=== PATIENT | female | born 1930 | race Caucasian/White ===

== ENCOUNTER 2016-10-28 13:41 | Inpatient (IN) ==
[2016-10-28] MEDS ORDERED: cefTRIAXone 1,000 MG in SODIUM CHLORIDE 0.9% 100 ML IV STA (14:38)
[2016-10-28] MEDS ORDERED: SODIUM CHLORIDE 0.9% 1,000 ML IV STA (14:38)
--- NOTE | 2016-10-28 15:04 | Emergency Department Note ---
Radha Key Hilary, am scribing for, and in the presence of, Dwayne Miner MD 14:44. Isidra Key Charles R, MD, personally performed the services described in this documentation, ascribed by Estee Garcia in my presence, and it is both accurate and complete [id number] . Arrival - Arrival Chief Complaint: Fever Stated Complaint: fever ED Nursing Triage Note: Brought in by EMS-sent from [facility] for further evaluation of fever and UTI. Patient was dx with UTI on 10/25/16, but was not started on antibiotics. Unsure of when patient started running fever, reports temp up to 104. Mode of Arrival: Stretcher Limitations: No Limitations Source: Patient, RN Notes Reviewed Time Seen by Provider: 10/28/16 14:35 - History of Present Illness HPI Narrative: Pt is a 86 y/o female brought into the ED via EMS from [facility] for further evaluation of a fever and UTI. Pt was diagnosed with a UTI on 10/25/16, but was not started on antibiotics. [facility] reports her temperature was at 104. Pt speaks very quietly almost inaudible but states she feels "crazy". Onset (ago): day(s) Date of Last Menstrual Period: hysterectomy Allergies/Adverse Reactions: Allergies Allergy/AdvReac Type Severity Reaction Status Date / Time No Known Allergies Allergy Verified 06/26/16 01:23 Home Medications: Home Medications Medication Instructions Recorded Confirmed Type Calcium (Carb)/Vit D 600-400 1 tablet PO TID 03/01/16 10/28/16 History [Caltrate 600 + D] Carbidopa/Levodopa 25-100 [Sinemet 1 tablet PO TID 03/01/16 10/28/16 History 25-100] Diclofenac 1% Gel [Voltaren 1% Gel] 1 applic TOP BID 03/01/16 10/28/16 History Escitalopram [Lexapro] 20 mg PO DAILY 03/01/16 10/28/16 History Ferrous Sulfate Liquid [Feosol 5 ml PO BID 03/01/16 10/28/16 History Liquid] Furosemide Tab [Lasix Tab] 20 mg PO DAILY 03/01/16 10/28/16 History HYDROcodone/ACETAMIN 7.5-325 1 tablet PO Q4H PRN 03/01/16 10/28/16 History [[place] 7.5-325] LORazepam [Ativan] 0.5 mg PO Q6H PRN 03/01/16 10/28/16 History Magnesium Hydroxide Susp [Milk of 30 ml PO DAILY PRN 03/01/16 10/28/16 History Magnesia] Memantine [Namenda] 10 mg PO BID 03/01/16 10/28/16 History Mirtazapine [Remeron] 15 mg PO SUMOTUWETHFR 03/01/16 10/28/16 History Polyethylene Glycol Powder 17 gm PO BID 03/01/16 10/28/16 History [Miralax] Potassium Chloride Liquid 15 ml PO TID 03/01/16 10/28/16 History Raloxifene [Evista] 60 mg PO DAILY 03/01/16 10/28/16 History Ropinirole HCl [Requip] 2 mg PO TID 03/01/16 10/28/16 History Acetaminophen Tab [Tylenol Tab] 1,000 mg PO Q6H PRN 04/22/16 10/28/16 History Gabapentin [Gabapentin] 300 mg PO BEDTIME 04/22/16 10/28/16 History Ondansetron Tab [Zofran Tab] 4 mg PO Q4H PRN 04/22/16 10/28/16 History guaiFENesin LIQUID [Robitussin] 10 ml PO Q4H PRN 04/22/16 10/28/16 History Albuterol/Ipratropium Neb [Duoneb] 3 ml RESP TX RT Q6H PRN 10/28/16 10/28/16 History Gabapentin 200 mg PO DAILY 10/28/16 10/28/16 History Omeprazole [Prilosec] 20 mg PO DAILY 10/28/16 10/28/16 History Review of System - Review of System 12 point system: reviewed and no additional remarkable complaints except as stated - Review of System Constitutional: Present: fever Psychiatric: Present: other (feels crazt). Absent: auditory hallucinations, visual hallucinations Medical,Surgical,& Family Hx - Medical History Cardio: History of: CHF, CAD, Hypertension Comment Only: Cardiovascular Problems (Cardiomegaly) Neurology: History of: Dementia, Parkinson's Disease No history of: Seizures Genitourinary: History of: Bladder Problem (incont.), Recurring Urinary Tract Infections Gastrointestinal: History of: GERD, GI Problems (HIATAL HERNIA) Musculoskeletal: History of: Back/Neck Problems (BACK SURGERY), Musculoskeletal Problems Hematology: History of: Anemia (IN PAST) - Surgical History HEENT Surgeries: Surgical HX of: Eye Surgery (bilateral cataract excisions) Abdominal Surgeries: Surgical HX of: Cholecystectomy Reproductive Surgeries: Surgical HX of;: Hysterectomy Orthopedic Surgeries: Surgical HX of;: Total Knee Replacement (bilateral) - Family History Family History: Reports;: Family Heart Disease (mother) Denies;: Family Anesthesia Reaction, Family Cancer, Family Diabetes, Family Hypertension, Family Psychiatric Problems, Family Stroke - Social History Smoking Status: Never smoker Frequency of Alcohol Use: None Type of Drug Use: None Exam Vital Signs: Vital Signs Temperature 98.9 F 10/28/16 13:47 Pulse Rate 106 H 10/28/16 13:47 Respiratory Rate 20 10/28/16 13:47 Blood Pressure 89/47 10/28/16 13:47 O2 Sat by Pulse Oximetry 100 10/28/16 13:47 - General General appearance: alert, in no apparent distress - Head Head exam: Present: atraumatic, normocephalic - Eye Eye exam: Present: normal appearance, PERRL, EOMI - ENT ENT exam: Present: mucous membranes dry, TM's normal bilaterally - Neck Neck exam: Present: full ROM, trachea midline. Absent: tenderness - Chest Chest inspection: Present: symmetric chest wall rise. Absent: tenderness - Respiratory Respiratory exam: Present: normal lung sounds bilaterally. Absent: respiratory distress - Cardiovascular Cardiovascular exam: Present: regular rate, normal rhythm, normal heart sounds - Abdominal Exam Abdominal exam: Present: soft, tenderness (Tenderness around peg tube. Doesn't eat through her mouth but does drink water. ). Absent: distention - Extremities Exam Extremities exam: Present: full ROM, tenderness (lower extremities), pedal edema (+3 pitting edema) - Back Exam Back exam: Present: full ROM. Absent: tenderness - Neurological Exam Neurological exam: Present: alert, oriented X3, CN II-XII intact. Absent: motor sensory deficit - Psychiatric Psychiatric exam: Present: normal affect, normal mood - Skin Skin exam: Present: warm, dry, intact, normal color. Absent: rash Course - Consultations Consultation #1: Hospitalist will admit patient Time: 17:13 Results - Labs CBC & BMP: 10/28/16 15:13 10/28/16 15:13 Lab Results: I have reviewed the patients labs Labs: Laboratory Tests 10/28/16 10/28/16 15:13 15:13 WBC 19.2 H Hgb 11.8 L MCHC 31.9 L Neut % (Auto) 85.0 H Lymph % (Auto) 5.4 L Neut # (Auto) 16.3 H Lymph # (Auto) 1.0 L Oliver # (Auto) 1.7 H Chloride 108 H BUN 21 H BUN/Creatinine Ratio 23.00 H Calcium 8.3 L Total Protein 6.2 L Albumin 2.5 L Globulin 3.7 H Albumin/Globulin Ratio 0.6 L Amylase 23 L Lipase 59.0 L - Diagnostic Findings Procedure: Chest x-ray: report reviewed by me (There are minimal biasilar opacities, mainly on the left. This likely represents atelectasis and possibly scarring. However, pneumonia is not excluded at the left lung base) Critical Care Time Critical Care Time: Yes Total Critical Care Time: 60 Disposition Clinical Impression: Sepsis, intermediate-acquired pneumonia, UTI (urinary tract infection), Fever, Confusion, Altered mental status, Hypotension, Leukocytosis Case discussed with: patient, patient's family Disposition: Still a Patient Condition: Stable Time of Disposition: 17:13
--- NOTE | 2016-10-28 15:15 | XRay Report ---
Referring Physician: Dwayne Miner Exam: XR chest 1V portable Date: October 28, 2016 at 2:50 PM Reason: Shortness of breath, fever Comparison: Chest one view portable June 26, 2016 Findings: The cardiac silhouette is upper normal in size, and there is scattered calcified plaque at the thoracic aorta. There are also calcified granulomas within the right lung. Minimal bibasilar opacities are present and likely represent atelectasis and possibly scarring. No pneumothorax is identified. The osseous structures appear stable. A sclerotic density is again seen within the left humeral head. It is nonspecific but may represent an enchondroma or bone infarction. Impression: There are minimal bibasilar opacities, mainly on the left. This likely represents atelectasis and possibly scarring. However, pneumonia is not excluded at the left lung base. PROCEDURE INTERPRETED AT [facility] DEPARTMENT OF RADIOLOGY Final Report Signed by: Dr. Erica Ruiz
[2016-10-28 16:10] LABS: Basophils # 0.1 10*3/uL (0.0-0.2); Basophils % 0.3 % (0.0-0.8); Hemoglobin 11.8 GM/DL (12.0-16.0); Immature Granulocytes % 0.7 %; Immature Granulocytes Absolute 0.13 #; Lymphocytes % 5.4 % (21.3-54.2); Mean Corpuscular HGB Conc 31.9 GM/DL (32-36); Mean Corpuscular Hemoglobin 30 PG (27-34); Mean Corpuscular Volume 93.4 FL (87-102); Mean Platelet Volume 11.7 FL (9.6-12.0); Monocytes # 1.7 10*3/uL (0.11-0.8); Monocytes % 8.6 % (1.7-12.7); Neutrophils # 16.3 10*3/uL (1.4-7.4); Platelet Count 205 T/CUMM (130-400); Red Blood Count 3.96 MC/CUMM (3.8-5.5); Red Cell Distribution Width 14.5 % (9.3-17.3); White Blood Count 19.2 T/CUMM (4-12)
[2016-10-28 16:18] LABS: INR 1.1; PT Patient Result 11.2 SECS
[2016-10-28] MEDS ORDERED: cefTRIAXone 1,000 MG VIAL ONE (16:30)
[2016-10-28 16:51] LABS: Albumin 2.5 G/DL (3.4-5.0); Bilirubin,Total 0.7 MG/DL (0.2-1.0); Calcium 8.3 MG/DL (8.5-10.1); Osmolality,Calculated 288.8 MOS/KG (273-304); Potassium 3.8 MMOL/L (3.5-5.1); Total Protein 6.2 G/DL (6.4-8.3)
[2016-10-28 17:01] LABS: Apearance,Urine CLOUDY (Clear); Bacteria,Urine Moderate /HPF (Few); Bilirubin,Urine Negative (Negative); Blood, Urine Small mg/dL (Negative); Glucose,Urine (UA) Negative (Negative); Ketones,Urine 5 mg/dL (Negative); Mucus,Urine Many /LPF (Occasional); Nitrite,Urine Negative (Negative); Protein,Urine 100 MG/DL; RBC,Urine 48 /HPF (0-4); Squamous Epithelial Cell,Urine Occasional /HPF (0-10); Urine Color Yellow (Yellow); Urine Specific Gravity 1.009 (1.001-1.035); Urine Urobilinogen < 2.0 EU/DL (0.2-1.0); WBC,Urine 67 /HPF (0-6)
[2016-10-28] MEDS ORDERED: LEVOFLOXACIN INJ 750 MG in PREMIX 1 EACH IV STA (17:16)
[2016-10-28] MEDS ORDERED: ALBUTEROL 2.5 MG/3 ML NEB RESP TX PRN (17:40)
[2016-10-28] MEDS ORDERED: SODIUM CHLORIDE 0.9% 500 ML IV ONE (17:40)
[2016-10-28] MEDS ORDERED: ACETAMINOPHEN 325 MG TABLET PO PRN (17:40)
[2016-10-28] MEDS ORDERED: ONDANSETRON 4 MG/2 ML VIAL IV PRN (17:40)
[2016-10-28] MEDS ORDERED: ZALEPLON 5 MG CAPSULE PO PRN (17:59)
[2016-10-28] MEDS ORDERED: LACTULOSE 20 GM/30 ML UDCUP PO PRN (17:59)
[2016-10-28] MEDS ORDERED: SODIUM CHLORIDE 0.9% 1,000 ML IV SCH (18:00)
--- NOTE | 2016-10-28 18:05 | Hospitalist History & Physical ---
<Chelita Silva - Last Filed: 10/28/16 18:02> Assessment and Plan (1) Septic shock Status: Acute Assessment and plan: Admit patient to ICU for close monitoring. Initiate sepsis protocol. IV fluids. IV antibiotics ordered (Zosyn). Labs ordered (Lactic acid, blood culture, urine culture, CMP, CBC). CXR ordered - results revealed bibasilar opacities (mainly on the left). Current Visit: Yes (2) Hypotension Status: Acute Assessment and plan: Cardiac monitoring. PRN Levophed ordered. Frequent vital signs. Bed rest. IV fluids ordered. Current Visit: Yes (3) Leukocytosis Status: Acute Assessment and plan: Leukocytosis likely multifactorial. Secondary to urinary tract infection ( providencia stuartii) and pneumonia. Pt. being treated with IV antibiotic (Zoysn ). Blood cultures pending. Current Visit: Yes (4) UTI (urinary tract infection) Status: Acute Assessment and plan: Pt. had urine culture completed on 10/25. Results indicate providencia stuartii which is sensitive to antibiotic Zosyn. Repeat urine culture pending. Das cath in place. Current Visit: Yes (5) Anemia Status: Acute Assessment and plan: Pt. h&h 11.8/37. Pt. on PPI. Repeat CBC in am. Monitor patient. Current Visit: No (6) Aspiration pneumonia Status: Acute Assessment and plan: CXR showed bibasilar opacites (mainly on left). Zosyn ordered for treatment. Speech eval ordererd. Consult engraver tender to restart tube feedings. Current Visit: No (7) Dehydration Status: Acute Assessment and plan: Gentle hydration. Check electrolyte status. Current Visit: No (8) Edema Status: Acute Assessment and plan: Bilateral lower extremity edema (right greater than left). Venous doppler scan ordered. BNP ordered. Echo ordered. Current Visit: Yes History of Present Illness Chief complaint: fever History of present illness: Ms. Parekh is a 86 year old white female patient with a history of hypertension, recurrent UTIs, dementia, and frequent falls that presents to the ED via EMS from [facility] for evaluation of fever, UTI, and WBC of 19.2. The patient's O2 saturation was very low on admission and supplemental O2 was used. The patient was recently diagnosed with a UTI and the urine culture on indicated a growth of providenci stuartii. The patient had not yet been treatment. Today at the nursing facility the staff reported a temp of 104 and a "very low blood pressure". On arrival to ED, pt was hypotensive. She received 1/ 2 Liter of fluid in the ED. Pt's family is at bedside and provides information about patient's code status (DNR) and current condition. Pt. is a poor historian and suffers from dementia. Pt. also has a peg tube in place that is used for supplemental feeding; pt has still been eating at the facility. Home Medications Medication Instructions Recorded Confirmed Type Calcium (Carb)/Vit D 600-400 1 tablet PO TID 03/01/16 10/28/16 History [Caltrate 600 + D] Carbidopa/Levodopa 25-100 [Sinemet 1 tablet PO TID 03/01/16 10/28/16 History 25-100] Diclofenac 1% Gel [Voltaren 1% Gel] 1 applic TOP BID 03/01/16 10/28/16 History Escitalopram [Lexapro] 20 mg PO DAILY 03/01/16 10/28/16 History Ferrous Sulfate Liquid [Feosol 5 ml PO BID 03/01/16 10/28/16 History Liquid] Furosemide Tab [Lasix Tab] 20 mg PO DAILY 03/01/16 10/28/16 History HYDROcodone/ACETAMIN 7.5-325 1 tablet PO Q4H PRN 03/01/16 10/28/16 History [[place] 7.5-325] LORazepam [Ativan] 0.5 mg PO Q6H PRN 03/01/16 10/28/16 History Magnesium Hydroxide Susp [Milk of 30 ml PO DAILY PRN 03/01/16 10/28/16 History Magnesia] Memantine [Namenda] 10 mg PO BID 03/01/16 10/28/16 History Mirtazapine [Remeron] 15 mg PO SUMOTUWETHFR 03/01/16 10/28/16 History Polyethylene Glycol Powder 17 gm PO BID 03/01/16 10/28/16 History [Miralax] Potassium Chloride Liquid 15 ml PO TID 03/01/16 10/28/16 History Raloxifene [Evista] 60 mg PO DAILY 03/01/16 10/28/16 History Ropinirole HCl [Requip] 2 mg PO TID 03/01/16 10/28/16 History Acetaminophen Tab [Tylenol Tab] 1,000 mg PO Q6H PRN 04/22/16 10/28/16 History Gabapentin [Gabapentin] 300 mg PO BEDTIME 04/22/16 10/28/16 History Ondansetron Tab [Zofran Tab] 4 mg PO Q4H PRN 04/22/16 10/28/16 History guaiFENesin LIQUID [Robitussin] 10 ml PO Q4H PRN 04/22/16 10/28/16 History Albuterol/Ipratropium Neb [Duoneb] 3 ml RESP TX RT Q6H PRN 10/28/16 10/28/16 History Gabapentin 200 mg PO DAILY 10/28/16 10/28/16 History Omeprazole [Prilosec] 20 mg PO DAILY 10/28/16 10/28/16 History Allergies Allergy/AdvReac Type Severity Reaction Status Date / Time No Known Allergies Allergy Verified 06/26/16 01:23 Medical,Surgical,& Family Hx - Medical History Cardio: History of: CHF, CAD, Hypertension Comment Only: Cardiovascular Problems (Cardiomegaly) Neurology: History of: Dementia, Parkinson's Disease No history of: Seizures Genitourinary: History of: Bladder Problem (incont.), Recurring Urinary Tract Infections Gastrointestinal: History of: GERD, GI Problems (HIATAL HERNIA) Musculoskeletal: History of: Back/Neck Problems (BACK SURGERY), Musculoskeletal Problems Hematology: History of: Anemia (IN PAST) - Surgical History HEENT Surgeries: Surgical HX of: Eye Surgery (bilateral cataract excisions) Abdominal Surgeries: Surgical HX of: Cholecystectomy Reproductive Surgeries: Surgical HX of;: Hysterectomy Orthopedic Surgeries: Surgical HX of;: Total Knee Replacement (bilateral) - Family History Family History: Reports;: Family Heart Disease (mother) Denies;: Family Anesthesia Reaction, Family Cancer, Family Diabetes, Family Hypertension, Family Psychiatric Problems, Family Stroke - Social History Smoking Status: Never smoker Frequency of Alcohol Use: None Type of Drug Use: None Marital Status: Single Lives With:: senior living Functional capacity: bed bound ROS unobtainable: other (provided by family) - Constitutional Constitutional: Present: fever(s), frequent falls, weakness - EENT Eyes: Present: loss of vision, requires corrective lense Ears: Present: decreased hearing. Absent: ear discharge Nose, mouth and throat: Absent: headache(s) - Cardiovascular Cardiovascular: Present: edema. Absent: chest pain at rest, dyspnea - Respiratory Respiratory: Absent: cough, dyspnea - Gastrointestinal Gastrointestinal: Present: constipation. Absent: nausea, vomiting - Genitourinary Genitourinary: Present: dysuria, hematuria, urinary incontinence - Neurological Neurological: Present: confusion, frequent falls. Absent: headache(s) - Psychiatric Psychiatric: Present: confusion, depression - Endocrine Endocrine: Present: fatigue, heat intolerance - Hematologic/Lymphatic Hematologic/Lymphatic: Absent: easy bleeding, easy bruising Exam - Constitutional Vitals: Period Temp Pulse Resp BP Sys/Morgan Pulse Ox Last 24 Hr 98.9 F-98.9 F 106-106 20-20 89-89/47-47 100 General appearance: normal weight, mild distress - Head Head exam: Present: normal inspection, normocephalic - Eye Eye exam: Present: EOMI. Absent: scleral icterus Pupils: Present: COSME. Absent: dilated - ENT ENT exam: Present: normal exam - Neck Neck exam: Present: normal inspection. Absent: thyromegaly - Respiratory Respiratory exam: Present: decreased breath sounds, other. Absent: rhonchi, wheezes - Cardiovascular Cardiovascular exam: Present: tachycardia. Absent: systolic murmur - GI/Abdominal GI/Abdominal exam: Present: normal bowel sounds, soft, other (pt had peg tube ) . Absent: tenderness - Extremities Exam Extremities exam: Present: normal capillary refill, edema (greater on right lower extremity vs left). Absent: full ROM - Neurological Exam Neurological exam: Present: altered, motor sensory deficit (unable to cooperate with full neurological exam), reflexes normal - Psychiatric Psychiatric exam: Present: normal affect, normal mood - Skin Skin exam: Present: normal color, dry. Absent: erythema Results - Labs CBC & BMP: 10/28/16 15:13 10/28/16 15:13 Lab Results: I have reviewed the past 24 hour labs Labs: Urine culture from outside facility from 10/25 indicate growth of providencia stuartii. - Diagnostic Findings Procedure: Chest x-ray: report reviewed by me (bibasilar opacities (mainly on the left)) <Lolis Esparza - Last Filed: 10/28/16 19:32> History of Present Illness History of present illness: Ms. Parekh is a 86 year old female seen and examined. History and physical already reviewed and edited. Exam - Constitutional Vitals: Period Temp Pulse Resp BP Sys/Morgan Pulse Ox Last 24 Hr 98.9 F-98.9 F 106-106 20-20 89-89/47-47 100 Results - Labs CBC & BMP: 10/28/16 15:13 10/28/16 15:13
--- NOTE | 2016-10-28 18:46 | Ultrasound Report ---
History: Lower extremity swelling. Fever Date: 10/28/2016 Study: Bilateral lower extremity color flow venous Doppler study Comparison exam: Venous ultrasound April 26, 2016 Color Doppler, wave form analysis, and compression analysis of the deep veins of both lower extremities from the common femoral vein level through the popliteal vein level shows that the veins are readily compressible. There is no abnormal intraluminal material to suggest thrombus. Waveform analysis is unremarkable. Ultrasound images were captured and archived Impression: No evidence of acute DVT PROCEDURE INTERPRETED AT [facility] DEPARTMENT OF RADIOLOGY Final Report Signed by: Dr. Rosalie Suazo
[2016-10-28] MEDS ORDERED: NOREPINEPHRINE 8 MG in SODIUM CHLORIDE 0.9% 242 ML IV SCH (20:00)
[2016-10-28] MEDS ORDERED: PIPERACILLIN/TAZOBACTAM 3,375 MG VIAL IV ONE (20:16)
[2016-10-28] MEDS ORDERED: PANTOPRAZOLE 40 MG VIAL IV ONE (20:16)
[2016-10-28] MEDS ORDERED: ENOXAPARIN 40 MG/0.4 ML SYRINGE ONE (20:17)
[2016-10-28] MEDS: PIPERACILLIN/TAZOBACTAM 3,375 MG in SODIUM CHLORIDE 0.9% 100 ML IV SCH (20:24)
[2016-10-28] MEDS: ENOXAPARIN 40 MG/0.4 ML SYRINGE SUBCUT SCH ×2 (20:28→23:11)
[2016-10-28] MEDS: ALBUTEROL/IPRATROPIUM 3 ML NEB RESP TX SCH (20:58)
[2016-10-28] MEDS ORDERED: PANTOPRAZOLE 40 MG VIAL IV SCH (21:00)
[2016-10-29] MEDS: ALBUTEROL/IPRATROPIUM 3 ML NEB RESP TX SCH ×4 (00:45→19:38)
[2016-10-29] MEDS: PIPERACILLIN/TAZOBACTAM 3,375 MG in SODIUM CHLORIDE 0.9% 100 ML IV SCH ×3 (04:57→21:05)
[2016-10-29] MEDS ORDERED: PIPERACILLIN/TAZOBACTAM 3,375 MG VIAL IV ONE (04:58)
[2016-10-29 06:16] LABS: Basophils # 0.1 10*3/uL (0.0-0.2); Basophils % 0.3 % (0.0-0.8); Eosinophils % 0.2 % (0.00-10.9); Hematocrit 31.1 VOL% (35.7-47.0); Immature Granulocytes % 0.8 %; Immature Granulocytes Absolute 0.16 #; Lymphocytes # 1.3 10*3/uL (1.4-4.0); Lymphocytes % 6.8 % (21.3-54.2); Mean Corpuscular HGB Conc 32.2 GM/DL (32-36); Mean Corpuscular Hemoglobin 30 PG (27-34); Mean Corpuscular Volume 93.7 FL (87-102); Mean Platelet Volume 12.4 FL (9.6-12.0); Monocytes # 1.2 10*3/uL (0.11-0.8); Monocytes % 5.9 % (1.7-12.7); Neutrophils # 16.7 10*3/uL (1.4-7.4); Platelet Count 187 T/CUMM (130-400); Red Blood Count 3.32 MC/CUMM (3.8-5.5); Red Cell Distribution Width 14.7 % (9.3-17.3); White Blood Count 19.4 T/CUMM (4-12)
[2016-10-29 06:45] LABS: Band Neutrophils 57 % (0-10); Lymphocytes 3 % (20-55); Segmented Neutrophils 35 % (50-85); Total Cells Counted 100
[2016-10-29 06:57] LABS: Hypochromasia Slight; Platelet Estimate Adequate
[2016-10-29 07:40] LABS: Calcium 8.1 MG/DL (8.5-10.1); Osmolality,Calculated 293.4 MOS/KG (273-304); Potassium 4.1 MMOL/L (3.5-5.1)
[2016-10-29] MEDS ORDERED: ALBUTEROL/IPRATROPIUM 3 ML NEB RESP TX PRN (09:41)
[2016-10-29] MEDS ORDERED: MAGNESIUM HYDROXIDE SUSP 30 ML UDCUP PO PRN (09:41)
[2016-10-29] MEDS: GABAPENTIN 100 MG CAPSULE PO SCH (10:24)
[2016-10-29] MEDS: POLYETHYLENE GLYCOL POWDER 17 GM PACK PO SCH ×2 (10:24→21:10)
[2016-10-29] MEDS: ESCITALOPRAM 10 MG TABLET PO SCH (10:24)
[2016-10-29] MEDS: MEMANTINE 10 MG TABLET PO SCH ×2 (10:24→21:09)
[2016-10-29] MEDS: MIRTAZAPINE 15 MG TABLET PO SCH (10:25)
[2016-10-29] MEDS: CARBIDOPA/LEVODOPA 25-100 MG TABLET PO SCH ×3 (10:25→21:09)
--- NOTE | 2016-10-29 12:15 | Hospitalist Progress Note ---
Assessment and Plan (1) UTI (urinary tract infection) Status: Acute Assessment and plan: Growing gram-negative rods, continue Zosyn Current Visit: Yes (2) Aspiration pneumonia Status: Acute Assessment and plan: Continue Zosyn, speech consult today Current Visit: No (3) Anemia Status: Chronic Assessment and plan: Stable continue Protonix Current Visit: No Qualifiers: Anemia type: iron deficiency (4) Altered mental status Status: Acute Assessment and plan: Should improve with treatment of infection, severely demented, Blood sugar low, restart tube feeding Current Visit: Yes (5) Hypotension Status: Acute Assessment and plan: Resolved with fluids. No pressors started. Stable for moving to Floor Current Visit: Yes (6) Septic shock Status: Acute Assessment and plan: resolved, Lactic acid only 1.4 Current Visit: Yes (7) Edema Status: Acute Assessment and plan: BNP 190, echo pending, HL IVF, no evidence of dvt Current Visit: Yes Hospitalist: Subjective Interval history: Patient did not require pressors last night. Patient improved with IV fluids. She is no longer tachycardiac. She is still in the emergency room. We will send her up to a [facility] bed. No monitors available at this time. Daughter at bedside and had several questions which were all answered. Patient appears to be breathing a little better today. She is requiring little more oxygen. Will Hep-Lock fluids. Exam - Constitutional Vitals: Period Temp Pulse Resp BP Sys/Morgan Pulse Ox Last 24 Hr 98.0 F-98.1 F 80-102 13-28 100-113/44-60 98-100 Exam: Heart Rate-[RRR] Lungs-[CTAB] GI-[+bs soft, NT] Ext-[no edema] Neuro [Motor 5/5], [alert and oriented times 3] psych [normal mood and affect] General [no acute distress] Results - Labs CBC & BMP: 10/29/16 04:40 10/29/16 04:40 Lab Results: I have reviewed the past 24 hour labs Labs: Blood cultures 2 pending, urine culture growing gram-negative rods - Diagnostic Findings Procedure: Ultrasound: report reviewed by me (No evidence of acute DVT)
[2016-10-29] MEDS ORDERED: DEXTROSE 50% 25 GM/50 ML VIAL IV PRN (13:40)
[2016-10-29] MEDS ORDERED: GLUCAGON 1 MG VIAL IM PRN (13:40)
--- NOTE | 2016-10-29 17:03 | ECHO Report ---
Ester Parekh Exam Date: 10/29/2016 14:32 Referring Physician: Technologist: Lakesha Raymond Age: 86 Ht (in): 68 Wt (lb): 136 Gender: F Exam Location: [facility] Echo Indications: UTI, SOB, edema, septic shock, hypotension BP: 109 / 60 HR: 84 Rhythm: Sinus Technical Quality: Good IMPRESSIONS Moderately increased septal wall thickness. Left ventricular ejection fraction is estimated at >65%. Mildly increased right ventricular size. The right atrium is mildly enlarged. The left atrium is mildly enlarged. Mild mitral valve regurgitation. Mild mitral valve sclerosis. Mild aortic valve sclerosis. [id number] tricuspid valve regurgitation. Tricuspid regurgitation velocities suggest a PAP of 20.8 mmH + RAP. Trace pulmonary valve regurgitation. MEASUREMENTS (Male / Female) Normal Values 2D ECHO LV Diastolic Diameter PLAX 3.3 cm 4.2 - 5.9 / 3.9 - 5.3 cm LV Systolic Diameter PLAX 2.4 cm LV Fractional Shortening PLAX 28.0 % IVS Diastolic Thickness 1.6 cm 0.6 - 1.0 / 0.6 - 0.9 cm LVPW Diastolic Thickness 1.3 cm 0.6 - 1.0 / 0.6 - 0.9 cm RV Internal Dim ED PLAX 3.3 cm Aortic Root Diameter 2.7 cm LA Systolic Diameter LX 3.5 cm 3.0 - 4.0 / 2.7 - 3.8 cm DOPPLER TR Peak Velocity 228.0 cm/s TR Peak Gradient 20.8 mmHg FINDINGS Left Ventricle moderately increased septal wall thickness. Moderately increased posterior wall thickness. Mild concentric left ventricular hypertrophy with diastolic dysfunction. Left ventricular ejection fraction is estimated at >65%. Right Ventricle Mildly increased right ventricular size. Right Atrium The right atrium is mildly enlarged. Left Atrium The left atrium is mildly enlarged. Mitral Valve Mild mitral valve sclerosis. Mild mitral valve regurgitation. Aortic Valve Mild aortic valve sclerosis. Tricuspid Valve Morphologically normal tricuspid valve. [id number] tricuspid valve regurgitation. Tricuspid regurgitation velocities suggest a PAP of 20.8 mmH + RAP.. Pulmonic Valve Pulmonic valve sclerosis. Trace pulmonary valve regurgitation. Pericardium No pericardial effusion. Aorta Normal size aortic root and proximal ascending aorta. Abel Ureña MD (Electronically Signed) Final Date: 29 October 2016 17:02
[2016-10-29] MEDS: ENOXAPARIN 40 MG/0.4 ML SYRINGE SUBCUT SCH (21:08)
[2016-10-29] MEDS: GABAPENTIN 300 MG CAPSULE PO SCH (21:12)
[2016-10-30] MEDS: ALBUTEROL/IPRATROPIUM 3 ML NEB RESP TX SCH ×5 (01:46→23:55)
[2016-10-30] MEDS: PIPERACILLIN/TAZOBACTAM 3,375 MG in SODIUM CHLORIDE 0.9% 100 ML IV SCH ×3 (04:27→20:06)
[2016-10-30 06:29] LABS: Basophils % 0.3 % (0.0-0.8); Eosinophils # 0.3 10*3/uL (0.0-0.87); Hematocrit 28.1 VOL% (35.7-47.0); Immature Granulocytes % 0.8 %; Lymphocytes # 1.3 10*3/uL (1.4-4.0); Lymphocytes % 10.1 % (21.3-54.2); Mean Corpuscular Hemoglobin 30 PG (27-34); Mean Platelet Volume 11.9 FL (9.6-12.0); Monocytes # 0.7 10*3/uL (0.11-0.8); Monocytes % 5.6 % (1.7-12.7); Neutrophils # 10.2 10*3/uL (1.4-7.4); Neutrophils % 81.2 % (38.7-73.9); Platelet Count 183 T/CUMM (130-400); Red Blood Count 3.02 MC/CUMM (3.8-5.5); Red Cell Distribution Width 14.9 % (9.3-17.3); White Blood Count 12.5 T/CUMM (4-12)
[2016-10-30 07:04] LABS: Calcium 7.8 MG/DL (8.5-10.1); Osmolality,Calculated 290.6 MOS/KG (273-304); Potassium 3.2 MMOL/L (3.5-5.1)
[2016-10-30] MEDS: ESCITALOPRAM 10 MG TABLET PO SCH (08:36)
[2016-10-30] MEDS: CARBIDOPA/LEVODOPA 25-100 MG TABLET PO SCH ×3 (08:36→20:03)
[2016-10-30] MEDS: GABAPENTIN 100 MG CAPSULE PO SCH (08:36)
[2016-10-30] MEDS: MEMANTINE 10 MG TABLET PO SCH ×2 (08:36→20:03)
[2016-10-30] MEDS: POLYETHYLENE GLYCOL POWDER 17 GM PACK PO SCH ×2 (08:36→20:02)
[2016-10-30] MEDS: PANTOPRAZOLE 40 MG TABLET PO SCH (08:37)
[2016-10-30] MEDS: POTASSIUM CHLORIDE 20 MEQ/15 ML UDCUP PO SCH (10:08)
--- NOTE | 2016-10-30 10:23 | Hospitalist Progress Note ---
Assessment and Plan (1) UTI (urinary tract infection) Status: Acute Assessment and plan: Growing gram-negative rods, continue Zosyn Current Visit: Yes (2) Aspiration pneumonia Status: Acute Assessment and plan: Continue Zosyn, speech recommends soft diet with chopped meats in small bites with supervision Current Visit: No (3) Anemia Status: Chronic Assessment and plan: Stable continue Protonix Current Visit: No Qualifiers: Anemia type: iron deficiency (4) Altered mental status Status: Acute Assessment and plan: Hard to evaluate when she is constantly sleeping. Both the gabapentin and Remeron make her sleep. Current Visit: Yes (5) Hypotension Status: Acute Assessment and plan: Resolved continue to monitor Current Visit: Yes (6) Septic shock Status: Acute Assessment and plan: resolved Current Visit: Yes (7) Edema Status: Acute Assessment and plan: BNP 190, echo EF 65%, moderate tricuspid regurg Current Visit: Yes Hospitalist: Subjective Interval history: We will DC her Das today. We will replace her potassium today. Patient still sleeping a lot. Exam - Constitutional Vitals: Period Temp Pulse Resp BP Sys/Morgan Pulse Ox Last 24 Hr 98.1 F-98.9 F 67-96 18-25 102-162/46-109 95-99 Exam: Heart Rate-[RRR] Lungs-[CTAB] GI-[+bs soft, NT] Ext-[no edema] Neuro sleeping cannot evaluate psych sleeping cannot evaluate General [no acute distress] Results - Labs CBC & BMP: 10/30/16 05:31 10/30/16 05:31 Lab Results: I have reviewed the past 24 hour labs Labs: Urine culture growing gram-negative rods, blood cultures 2 negative no growth
[2016-10-30] MEDS: ENOXAPARIN 40 MG/0.4 ML SYRINGE SUBCUT SCH (20:02)
[2016-10-30] MEDS: GABAPENTIN 300 MG CAPSULE PO SCH (20:03)
[2016-10-31] MEDS: PIPERACILLIN/TAZOBACTAM 3,375 MG in SODIUM CHLORIDE 0.9% 100 ML IV SCH ×2 (03:22→10:09)
[2016-10-31 05:44] LABS: Basophils % 0.4 % (0.0-0.8); Eosinophils # 0.5 10*3/uL (0.0-0.87); Eosinophils % 7.6 % (0.00-10.9); Hemoglobin 9.4 GM/DL (12.0-16.0); Immature Granulocytes % 0.4 %; Immature Granulocytes Absolute 0.03 #; Lymphocytes # 1.3 10*3/uL (1.4-4.0); Lymphocytes % 18.8 % (21.3-54.2); Mean Corpuscular HGB Conc 31.3 GM/DL (32-36); Mean Corpuscular Hemoglobin 30 PG (27-34); Mean Corpuscular Volume 95.2 FL (87-102); Mean Platelet Volume 11.4 FL (9.6-12.0); Monocytes # 0.5 10*3/uL (0.11-0.8); Monocytes % 7.7 % (1.7-12.7); Neutrophils # 4.4 10*3/uL (1.4-7.4); Neutrophils % 65.1 % (38.7-73.9); Platelet Count 173 T/CUMM (130-400); Red Blood Count 3.15 MC/CUMM (3.8-5.5); Red Cell Distribution Width 14.7 % (9.3-17.3); White Blood Count 6.8 T/CUMM (4-12)
[2016-10-31 06:14] LABS: Calcium 7.5 MG/DL (8.5-10.1); Osmolality,Calculated 288.6 MOS/KG (273-304); Potassium 3.4 MMOL/L (3.5-5.1)
[2016-10-31] MEDS: ALBUTEROL/IPRATROPIUM 3 ML NEB RESP TX SCH ×2 (07:26→13:53)
[2016-10-31] MEDS: CARBIDOPA/LEVODOPA 25-100 MG TABLET PO SCH (09:07)
[2016-10-31] MEDS: ESCITALOPRAM 10 MG TABLET PO SCH (09:07)
[2016-10-31] MEDS: MIRTAZAPINE 15 MG TABLET PO SCH (09:08)
[2016-10-31] MEDS: POTASSIUM CHLORIDE 20 MEQ/15 ML UDCUP PO SCH (09:08)
[2016-10-31] MEDS: POLYETHYLENE GLYCOL POWDER 17 GM PACK PO SCH (09:08)
[2016-10-31] MEDS: GABAPENTIN 100 MG CAPSULE PO SCH (09:08)
[2016-10-31] MEDS: PANTOPRAZOLE 40 MG TABLET PO SCH (09:08)
[2016-10-31] MEDS: MEMANTINE 10 MG TABLET PO SCH (09:08)
[2016-10-31] MEDS ORDERED: NITROGLYCERIN 2% OINT 1 INCH/GM PACK TOP ONE (09:24)
--- NOTE | 2016-10-31 09:38 | EKG Report ---
Stationary ECG Study [facility] Test Date: 10/31/2016 9:38:50 AM Pat Name: IMANI HAM Department: Room: 527 Gender: F Driller Helper: TYLER : 1930 Requested by: Lolis Rodriguez Order Number: [id number] Reading MD: MIGUEL A RANGEL Intervals [place] Rate: 81 P: 27 AK: 221 QRS: -21 QRSD: 93 T: -1 QT: 387 QTc: 424 Interpretive Statements SINUS RHYTHM WITH PROLONGED AK INTERVAL MINIMAL VOLTAGE CRITERIA FOR LVH, CONSIDER NORMAL VARIANT POSSIBLE ANTERIOR MYOCARDIAL INFARCTION, PROBABLY OLD Electronically Signed On 11-01-16 08:56:05 CDT by MIGUEL A RANGEL [email or web address]
[2016-10-31] MEDS ORDERED: ALUM/MAG/SIMETH/LIDO VISC 1:1 30 ML BOTTLE PO ONE (10:02)
[2016-10-31] MEDS ORDERED: FAMOTIDINE 20 MG TABLET PO SCH (10:30)
--- NOTE | 2016-10-31 10:36 | Discharge Summary ---
Hospital Course - Hospital Course Hospital Course: Ms. Parekh is a 86 year old white female patient with a history of hypertension, recurrent UTIs, dementia who lives permanently at [facility] with a fever 104 , UTI, and WBC of 19.2. The patient's O2 saturation was very low on admission and supplemental O2 was used. The patient was recently diagnosed with a UTI and the urine culture on 10/25 indicated a growth of providenci stuartii sensitive to zosyn. Bilateral opacities mostly in left. She was treated for aspiration pneumonia and her breathing improved. Speech saw her and feels she has no signs and symptoms of aspiration and recommended soft diet with chopped meats and gravy. Repeat culture also grew providenci stuartii with intermittent sensitivity to Zosyn. It was very sensitive to Rocephin. Patient's white count has returned to normal on Zosyn and patient's mental status has improved. She is no longer running fevers. Blood cultures 2 are negative no growth. Patient has a potassium disorder that has to be supplemented despite not receiving any diuretics. Patient develops chest pain from her potassium. EKG is unchanged from prior. Patient is not a candidate for any kind of intervention at this point or in the future. I would ensure that we gave her Pepcid prior to giving her potassium. Septic shock has resolved. Dehydration has resolved. Her anemia is stable. Plan to transfer her back to [facility] with weather clears. Currently have [employer] watch and cannot transfer her until weather clears. - Time spent with patient Time with patient DS: Greater than 30 minutes (50 min) Diagnosis - Discharge Diagnosis (1) UTI (urinary tract infection) Status: Acute (2) Aspiration pneumonia Status: Acute (3) Anemia Status: Chronic (4) Altered mental status Status: Acute (5) Hypotension Status: Acute (6) Septic shock Status: Acute (7) Edema Status: Acute Discharge Plan - Discharge Data Disposition: Disch/Xfer to Snf Condition at Discharge: Stable Discharge Diet: heart healthy (Soft diet with chopped meats in small bites with sips of water.) Activity: wear oxygen at all times, other (bedrest) - Discharge Medications New Dextrose 50% [D50] 25 gm IV PRN PRN #0 vial PRN Reason: Hypoglycemia with IV access Glucagon 1 mg IM PRN PRN #0 vial PRN Reason: Hypoglycemia w/o IV access Lactulose Liquid [Chronulac] 20 gm PO Q4H PRN #0 PRN Reason: Constipation cefTRIAXone [Rocephin] 1,000 mg IM Q24H #5 vial Famotidine Tab [Pepcid Tab] 20 mg PO BID tablet Continue Diclofenac 1% Gel [Voltaren 1% Gel] 1 applic TOP BID Magnesium Hydroxide Susp [Milk of Magnesia] 30 ml PO DAILY PRN PRN Reason: Constipation Mirtazapine [Remeron] 15 mg PO SUMOTUWETHFR Memantine [Namenda] 10 mg PO BID Polyethylene Glycol Powder [Miralax] 17 gm PO BID Calcium (Carb)/Vit D 600-400 [Caltrate 600 + D] 1 tablet PO TID Potassium Chloride Liquid 15 ml PO TID Escitalopram [Lexapro] 20 mg PO DAILY Carbidopa/Levodopa 25-100 [Sinemet 25-100] 1 tablet PO TID Acetaminophen Tab [Tylenol Tab] 1,000 mg PO Q6H PRN PRN Reason: Pain Gabapentin 300 mg PO BEDTIME Ondansetron Tab [Zofran Tab] 4 mg PO Q4H PRN PRN Reason: Nausea Albuterol/Ipratropium Neb [Duoneb] 3 ml RESP TX RT Q6H PRN PRN Reason: Pain HYDROcodone/ACETAMIN 7.5-325 [[place] 7.5-325] 1 tablet PO Q4H PRN #30 PRN Reason: Pain Gabapentin 200 mg PO DAILY Changed Omeprazole [Prilosec] 40 mg PO BID #60 tablet Discontinued Furosemide Tab [Lasix Tab] 20 mg PO DAILY LORazepam [Ativan] 0.5 mg PO Q6H PRN PRN Reason: Anxiety Ferrous Sulfate Liquid [Feosol Liquid] 5 ml PO BID Ropinirole HCl [Requip] 2 mg PO TID Raloxifene [Evista] 60 mg PO DAILY guaiFENesin LIQUID [Robitussin] 10 ml PO Q4H PRN PRN Reason: Cough - Follow Up or Referral - Forms/Instructions Additional Discharge Instructions: Discharge to [facility] when weather clears. Does not need to see doctor before she leaves even if not till tomorrow Exam - Constitutional Vitals: Period Temp Pulse Resp BP Sys/Morgan Pulse Ox Last 24 Hr 97.6 F-99.4 F 70-106 16-21 125-151/51-80 94-99 General appearance: normal weight, no acute distress - Respiratory Respiratory exam: Present: clear to auscultation bilaterally. Absent: rhonchi, wheezes - Cardiovascular Cardiovascular exam: Present: regular rate and rhythm. Absent: systolic murmur - GI/Abdominal GI/Abdominal exam: Present: normal bowel sounds, soft. Absent: tenderness - Extremities Exam Extremities exam: Present: normal inspection, normal capillary refill - Neurological Exam Neurological exam: Present: alert, oriented X3 - Psychiatric Psychiatric exam: Present: normal affect, normal mood Discharge Results Procedures and tests throughout hospitalization: Pending Orders 11/01/16 04:00 Magnesium MOTH Phosphorous MOTH Prealbumin MOTH Labs on day of discharge: Labs from last 24 hours 10/31/16 10/31/16 05:25 05:25 WBC 6.8 D RBC 3.15 L Hgb 9.4 L Hct 30.0 L MCV 95.2 MCH 30 MCHC 31.3 L RDW 14.7 Plt Count 173 MPV 11.4 Neut % (Auto) 65.1 Lymph % (Auto) 18.8 L [place] % (Auto) 7.7 Eos % (Auto) 7.6 Baso % (Auto) 0.4 Neut # (Auto) 4.4 Lymph # (Auto) 1.3 L [place] # (Auto) 0.5 Eos # (Auto) 0.5 Baso # (Auto) 0.0 Immature Gran % 0.4 Nucleated RBC % 0.0 Immature Gran # 0.03 Nucleated RBCs # 0.00 Sodium 146 H Potassium 3.4 L Chloride 112 H Carbon Dioxide 25 Anion Gap 12.4 BUN 12 Creatinine 0.60 GFR Calculation 86 BUN/Creatinine Ratio 20.00 Glucose 85 Calculated Osmolality 288.6 Calcium 7.5 L DS: Provider Date of admission: 10/28/16 17:19 Primary care physician: . No PCP Attending physician on admission: Lolis Esparza MD Consults: 10/28/16 20:03 Consult to Pharmacy [CONS] Routine Reason for Pharmacy Consult: Adjust Meds Renal Funct 10/29/16 10:01 Consult to Dietitian [CONS] Routine Reason for Dietitian: Other 10/29/16 12:19 Consult to Dietitian [CONS] Routine Reason for Dietitian: TF-Initiate/Manage Discharging clinician: Lolis Esparza MD
[2016-10-31] MEDS ORDERED: cefTRIAXone 1,000 MG in SODIUM CHLORIDE 0.9% 100 ML IV SCH (11:00)
[2016-10-31 11:31] VITALS: BP 140/61
== END 2016-10-31 14:37 | DRG 871 ==
LOC: EDBD → EDUNIT# → N.ED 13:41 → N.EDINP 17:19 → N.5E 10-29 09:15
PROVIDERS: ADMIT Internal Medicine; ATTEND Internal Medicine

== ENCOUNTER 2017-01-26 18:17 | Inpatient (IN) ==
[2017-01-26] MEDS ORDERED: SODIUM CHLORIDE 0.9% 500 ML IV STA (18:51)
[2017-01-26] MEDS ORDERED: PIPERACILLIN/TAZOBACTAM 3,375 MG in SODIUM CHLORIDE 0.9% 100 ML IV STA (19:07)
[2017-01-26] MEDS ORDERED: methylPREDNISolone SOD SUC 125 MG/2 ML VIAL IV STA (19:07)
[2017-01-26] MEDS ORDERED: ONDANSETRON 4 MG/2 ML VIAL IV STA (19:07)
[2017-01-26] MEDS ORDERED: cefTRIAXone 1,000 MG in SODIUM CHLORIDE 0.9% 100 ML IV STA (19:07)
[2017-01-26] MEDS ORDERED: FUROSEMIDE 100 MG/10 ML VIAL IV STA (19:07)
[2017-01-26 19:10] LABS: Basophils # 0.1 10*3/uL (0.0-0.2); Basophils % 0.8 % (0.0-0.8); Hematocrit 34.8 VOL% (35.7-47.0); Hemoglobin 11.5 GM/DL (12.0-16.0); Immature Granulocytes % 1.1 %; Immature Granulocytes Absolute 0.13 #; Lymphocytes # 0.7 10*3/uL (1.4-4.0); Lymphocytes % 5.7 % (21.3-54.2); Mean Corpuscular Hemoglobin 31 PG (27-34); Mean Corpuscular Volume 93.8 FL (87-102); Mean Platelet Volume 12.9 FL (9.6-12.0); Neutrophils # 10.1 10*3/uL (1.4-7.4); Neutrophils % 84.4 % (38.7-73.9); Platelet Count 163 T/CUMM (130-400); Red Blood Count 3.71 MC/CUMM (3.8-5.5); Red Cell Distribution Width 14.9 % (9.3-17.3); White Blood Count 11.9 T/CUMM (4-12)
[2017-01-26 19:16] LABS: Alanine Aminotransferase < 9 U/L (13-56); Albumin 2.4 G/DL (3.4-5.0); Alkaline Phosphatase 72 U/L (45-117); Aspartate Amino Transferase 22 U/L (0-37); Blood Urea Nitrogen 34 MG/DL (7-18); Total Protein 6.6 G/DL (6.4-8.3)
[2017-01-26 19:17] LABS: Glucose 142 MG/DL (74-106); Osmolality,Calculated 297.7 MOS/KG (273-304); Sodium 145 MMOL/L (136-145)
[2017-01-26 19:19] LABS: Lactic Acid 5.3 MMOL/L (0.4-2.0)
[2017-01-26 19:20] LABS: INR 1.1; PT Patient Result 11.6 SECS
[2017-01-26] MEDS ORDERED: methylPREDNISolone SOD SUC 125 MG/2 ML VIAL ONE (19:21)
[2017-01-26] MEDS ORDERED: FUROSEMIDE 20 MG/2 ML VIAL ONE (19:21)
[2017-01-26] MEDS ORDERED: PIPERACILLIN/TAZOBACTAM 3,375 MG VIAL IV ONE (19:21)
[2017-01-26] MEDS ORDERED: cefTRIAXone 1,000 MG VIAL ONE (19:21)
[2017-01-26] MEDS ORDERED: ONDANSETRON 4 MG/2 ML VIAL ONE (19:21)
[2017-01-26] MEDS ORDERED: SODIUM CHLORIDE 0.9% 200 ML IV ONE (19:23)
[2017-01-26 19:29] LABS: Magnesium 2.5 MG/DL (1.8-2.4); Troponin I Only < 0.015 NG/ML (0.00-0.045)
[2017-01-26] MEDS ORDERED: ALBUTEROL 2.5 MG/3 ML NEB RESP TX SCH (19:30)
--- NOTE | 2017-01-26 19:41 | Emergency Department Note ---
Radha Key Hilary, am scribing for, and in the presence of, Dwayne Miner MD 19:10. Isidra Key Charles R, MD, personally performed the services described in this documentation, ascribed by Estee Garcia in my presence, and it is both accurate and complete 941 . Arrival - Arrival Chief Complaint: Shortness of Breath Stated Complaint: shortness of breath ED Nursing Triage Note: Brought in per EMS from [facility] with c/o shortness of breath and low oxygen saturation onset yesterday. O2 sat "low 80's" per [facility]. Had chest xray today--questionable left basilar consolidation. Denies pain. Mode of Arrival: Stretcher Limitations: No Limitations Source: Patient, RN Notes Reviewed Time Seen by Provider: 01/26/17 18:50 - History of Present Illness HPI Narrative: Pt is a 87 y/o female brought to the ED via EMS with c/o SOB which onset yesterday. Pt is from [facility] and confirms SOB but denies pain or cough. She has a PMHx of CHF, CAD, HTN, Parkinsons, and Dementia. No other complaints or problems stated in the ED. Pts paperwork from the [facility] states that she is a DNR. Onset (ago): day(s) Consistency: constant Severity: moderate Severity scale (1-10): 3 Date of Last Menstrual Period: PM Allergies/Adverse Reactions: Allergies Allergy/AdvReac Type Severity Reaction Status Date / Time No Known Allergies Allergy Verified 01/26/17 18:26 Home Medications: Home Medications Medication Instructions Recorded Confirmed Type Calcium (Carb)/Vit D 600-400 1 tablet PO TID 03/01/16 01/26/17 History [Caltrate 600 + D] Carbidopa/Levodopa 25-100 [Sinemet 1 tablet PO TID 03/01/16 01/26/17 History 25-100] Diclofenac 1% Gel [Voltaren 1% Gel] 1 applic TOP BID 03/01/16 01/26/17 History Escitalopram [Lexapro] 20 mg PO DAILY 03/01/16 01/26/17 History Memantine [Namenda] 10 mg PO BID 03/01/16 01/26/17 History Mirtazapine [Remeron] 15 mg PO SUMOTUWETHFR 03/01/16 01/26/17 History Polyethylene Glycol Powder 17 gm PO BID 03/01/16 01/26/17 History [Miralax] Potassium Chloride Liquid 15 ml PO TID 03/01/16 01/26/17 History Acetaminophen Tab [Tylenol Tab] 1,000 mg PO Q6H PRN 04/22/16 01/26/17 History Gabapentin 300 mg PO BEDTIME 04/22/16 01/26/17 History Ondansetron Tab [Zofran Tab] 4 mg PO Q4H PRN 04/22/16 01/26/17 History Albuterol/Ipratropium Neb [Duoneb] 3 ml RESP TX RT Q6H PRN 10/28/16 01/26/17 History Gabapentin 200 mg PO DAILY 10/28/16 01/26/17 History Famotidine Tab [Pepcid Tab] 20 mg PO BID tablet 10/31/16 01/26/17 Rx HYDROcodone/ACETAMIN 7.5-325 1 tablet PO Q4H PRN #30 10/31/16 01/26/17 Rx [[place] 7.5-325] Lactulose Liquid [Chronulac] 20 gm PO Q4H PRN #0 10/31/16 01/26/17 Rx Ferrous Sulfate 220 mg PO BID 01/26/17 01/26/17 History Furosemide [Furosemide] 20 mg PO DAILY 01/26/17 01/26/17 History LORazepam TAB [Ativan Tab] 0.5 mg PO Q6H PRN 01/26/17 01/26/17 History Omeprazole [Prilosec] 20 mg PO DAILY 01/26/17 01/26/17 History Raloxifene [Evista] 60 mg PO DAILY 01/26/17 01/26/17 History Ropinirole HCl 2 mg PO TID 01/26/17 01/26/17 History Sodium Phosphate Enema [Fleet 133 ml RECTAL DAILY PRN 01/26/17 01/26/17 History Enema] guaiFENesin LIQUID [Robitussin] 10 ml PO Q4H 01/26/17 01/26/17 History Review of System - Review of System 12 point system: reviewed and no additional remarkable complaints except as stated - Review of System Constitutional: Absent: fever Respiratory: Present: respiratory distress (SOB) Cardiovascular: Absent: chest pain Gastrointestinal: Absent: abdominal pain Medical,Surgical,& Family Hx - Medical History Cardio: History of: CHF, CAD, Hypertension Comment Only: Cardiovascular Problems (Cardiomegaly) Psychological: History of: Anxiety Disorders, Depression Neurology: History of: Dementia, Parkinson's Disease No history of: Seizures Genitourinary: History of: Bladder Problem (incont.), Recurring Urinary Tract Infections Gastrointestinal: History of: GERD, GI Problems (HIATAL HERNIA) Musculoskeletal: History of: Back/Neck Problems (BACK SURGERY), Musculoskeletal Problems (weakness) Hematology: History of: Anemia - Surgical History HEENT Surgeries: Surgical HX of: Eye Surgery (bilateral cataract excisions) Abdominal Surgeries: Surgical HX of: Cholecystectomy Reproductive Surgeries: Surgical HX of;: Hysterectomy Orthopedic Surgeries: Surgical HX of;: Total Knee Replacement (bilateral) - Family History Family History: Reports;: Family Heart Disease (mother) Denies;: Family Anesthesia Reaction, Family Cancer, Family Diabetes, Family Hypertension, Family Psychiatric Problems, Family Stroke - Social History Smoking Status: Never smoker Frequency of Alcohol Use: None Type of Drug Use: None Exam Vital Signs: Vital Signs Temperature 97.0 F L 01/26/17 18:39 Pulse Rate 82 01/26/17 18:39 Respiratory Rate 23 01/26/17 18:39 Blood Pressure 72/39 01/26/17 18:39 O2 Sat by Pulse Oximetry 95 01/26/17 18:39 - General General appearance: alert, in distress (moderate) - Head Head exam: Present: atraumatic, normocephalic - Eye Eye exam: Present: PERRL, EOMI. Absent: normal appearance (pale conjuctiva, sunken orbitals) - ENT ENT exam: Present: mucous membranes dry, TM's normal bilaterally. Absent: mucous membranes moist - Neck Neck exam: Present: full ROM, trachea midline. Absent: tenderness - Chest Chest inspection: Present: symmetric chest wall rise. Absent: tenderness - Respiratory Respiratory exam: Present: normal lung sounds bilaterally (gurgling noises), rales, rhonchi (worse in the right than the left) - Cardiovascular Cardiovascular exam: Present: irregular rhythm (Tachycardic to normal sinus rhythm), normal heart sounds. Absent: murmur, rubs, gallop - Abdominal Exam Abdominal exam: Present: soft, diminished bowel sounds (has a functioning peg tube). Absent: distention, tenderness - Extremities Exam Extremities exam: Present: full ROM, pedal edema (2+). Absent: tenderness - Back Exam Back exam: Present: full ROM. Absent: tenderness - Neurological Exam Neurological exam: Present: oriented X3, CN II-XII intact. Absent: alert ( slightly out of it) - Psychiatric Psychiatric exam: Present: normal affect, normal mood - Skin Skin exam: Present: warm, intact, normal color, pallor, other (poor skin turgor) . Absent: rash Course Course Narrative: Patient is septic hypotensive but is a DNR comfort care measures only - Consultations Consultation #1: Hospitalist will admit patient Time: 20:30 Results - Labs CBC & BMP: 01/26/17 18:33 01/26/17 18:33 Lab Results: I have reviewed the patients labs Labs: Laboratory Tests 10/28/16 01/26/17 01/26/17 15:57 18:33 18:33 WBC 11.9 RBC 3.71 L Hgb 11.5 L Hct 34.8 L Plt Count 163 MPV 12.9 H Neut % (Auto) 84.4 H Lymph % (Auto) 5.7 L Neut # (Auto) 10.1 H Lymph # (Auto) 0.7 L Leslie # (Auto) 1.0 H Sodium 145 Potassium 5.0 Chloride 112 H Carbon Dioxide 26 BUN 34 H Creatinine 1.40 H BUN/Creatinine Ratio 24.00 H Glucose 142 H ALT < 9 L Total Protein 6.6 Albumin 2.4 L Globulin 4.2 H Albumin/Globulin Ratio 0.5 L Urine Color Yellow Urine Appearance Cloudy Urine Urobilinogen < 2.0 H Urine Leukocytes Small H Laboratory Tests 01/26/17 01/26/17 01/26/17 18:33 18:33 18:33 INR 1.1 PT Patient/Control Mix 11.6 Lactic Acid 5.3 H Magnesium 2.5 H Troponin I < 0.015 Laboratory Tests 01/26/17 01/26/17 01/26/17 18:33 18:33 19:33 Platelet Estimate Normal Morphology Comment ABG pH ABG pCO2 ABG pO2 ABG HCO3 ABG Total CO2 ABG O2 Saturation ABG Base Excess FiO2 B-Natriuretic Peptide 326 H Urine Color Red Urine pH 6.0 Ur Specific [place] 1.006 Urine Protein 100 Urine Urobilinogen < 2.0 H Urine Leukocytes Large H Urine RBC 4 Urine WBC 24 Urine WBC Clumps Few Urine Bacteria Many 01/26/17 19:55 Platelet Estimate Morphology Comment ABG pH 7.390 ABG pCO2 38.4 ABG pO2 63.3 L ABG HCO3 22.7 ABG Total CO2 23.9 ABG O2 Saturation 92.9 L ABG Base Excess -1.9 FiO2 32.00 B-Natriuretic Peptide Urine Color Urine pH Ur Specific [place] Urine Protein Urine Urobilinogen Urine Leukocytes Urine RBC Urine WBC Urine WBC Clumps Urine Bacteria - Diagnostic Findings Procedure: Chest x-ray: report reviewed by me (Cardiomegaly and evidence of CHF. Some superimposed left lower lobe pneumonia cannot be excluded) Critical Care Time Critical Care Time: Yes Total Critical Care Time: 60 Disposition Clinical Impression: Altered mental status, Hypotension, Septic shock, UTI (urinary tract infection) , Sepsis, Confusion, Dementia, Pneumonia, [facility]-acquired pneumonia, Congestive heart failure, Aspiration pneumonia, Malnutrition of moderate degree , DNR (do not resuscitate) Case discussed with: patient Disposition: Still a Patient Condition: Critical Time of Disposition: 20:22 Sepsis - Sepsis Classification of Sepsis: Sepsis - Physical Exam Respiratory exam: rales, wheezes Cardiovascular exam: irregular rhythm Skin exam: cyanosis
--- NOTE | 2017-01-26 19:44 | XRay Report ---
History: Shortness of breath Date: 01/26/2017 Study: Chest x-ray AP portable Comparison exam: October 28, 2016 There is cardiomegaly. The pulmonary vasculature is slightly prominent. The mediastinal contours are similar to the previous study. There is some patchy and hazy edema/infiltrate in the left lower lobe with mild hazy changes in the right lung base as well. There is mild left pleural effusion. There are some occasional scattered calcific granulomata. Osseous structures are unchanged. Impression: Cardiomegaly and evidence of CHF. Some superimposed left lower lobe pneumonia cannot be excluded PROCEDURE INTERPRETED AT [facility] DEPARTMENT OF RADIOLOGY Final Report Signed by: Dr. Rosalie Suazo
[2017-01-26 20:00] LABS: Platelet Estimate Normal
[2017-01-26 20:04] LABS: Apearance,Urine CLOUDY (Clear); Bacteria,Urine Many /HPF (Few); Bilirubin,Urine Negative (Negative); Blood, Urine Moderate mg/dL (Negative); Glucose,Urine (UA) Negative (Negative); Ketones,Urine Negative (Negative); Nitrite,Urine Negative (Negative); Protein,Urine 100 MG/DL; RBC,Urine 4 /HPF (0-4); Squamous Epithelial Cell,Urine Occasional /HPF (0-10); Urine Color Red (Yellow); Urine Specific Gravity 1.006 (1.001-1.035); Urine Urobilinogen < 2.0 EU/DL (0.2-1.0); WBC,Urine 24 /HPF (0-6)
[2017-01-26 20:09] LABS: ABG Base Excess -1.9 MMOL/L (-2.5-2.5); ABG HCO3 22.7 MMOL/L (20-26); ABG Oxygen Saturation 92.9 % (95-100); ABG PCO2 38.4 MM HG (35-48); ABG PO2 63.3 MM HG (80-95); ABG TCO2 23.9 MMOL/L (23-27); Allen Test Positive
--- NOTE | 2017-01-26 21:11 | Hospitalist History & Physical ---
Assessment and Plan (1) Septic shock Status: Acute Assessment and plan: patient has an overwhelming sepsis most likely due to pneumonia and UTI. Family doesnt want pressors, heroic measures. She is a DNR.Prognosis is poor Plan comfort care IV cefepime and Vanc IVF- gently-patient has CHF exacerbation Hospice consult in am. UC, BC Current Visit: Yes (2) UTI (urinary tract infection) Status: Acute Assessment and plan: will give start antibiotics and send urine and blood for cultures. Current Visit: No (3) Congestive heart failure Status: Acute Assessment and plan: acute phase. Plan -oxygen -unable to diurese due to hypotension -serial cardiac enzymes -comfort care Current Visit: Yes (4) [facility]-ac[facility] pneumonia Status: Acute Assessment and plan: -will place on antibiotics] Follow cultures. Current Visit: Yes (5) Acute kidney injury Status: Acute Assessment and plan: due to hypotension and sepsis BMP in am Current Visit: No (6) Acute respiratory failure Status: Acute Assessment and plan: due to pneumonia and sepsis Plan continue with o2, nebs treatment, steroids and antibiotics. Current Visit: Yes (7) Altered mental status Status: Acute Assessment and plan: most likely multifactorial-sepsis, dehydration,worsening of underlying dementia Plan CT head when patient is stable Iv antibiotics IVF ammonia cardiac enzymes Current Visit: Yes History of Present Illness Chief complaint: AMS, SOb History of present illness: Ms. Parekh is a 87 year old female with multiple medical issues including CHF, CAD, HTN Parkinsons and Dementia who was sent from [place] for evaluation of SOB , hypoxia and AMS. She had a CXR in the [place] today which showed a questionable left basilar consolidation.Her mental status and SOB deteriorated over a period of 24hrs. Upon arrival to the ER, patient was found to be severely dyspneic and hypoxemic on 3L of oxygen. She is also minimally responsive, Family members want her to have Comfort care only and made her a DNR, no heroic measures. History was not detailed. Urine was purulent and UA was positive. Lactic acid level was 5.3. Her blood pressure has remained in the 60s-80s/30s-40s despite IVF boluses. Family doesn't want pressors. Prognosis is poor. We will admit to medical floor and consider hospice care in am. Home Medications Medication Instructions Recorded Confirmed Type Calcium (Carb)/Vit D 600-400 1 tablet PO TID 03/01/16 01/26/17 History [Caltrate 600 + D] Carbidopa/Levodopa 25-100 [Sinemet 1 tablet PO TID 03/01/16 01/26/17 History 25-100] Diclofenac 1% Gel [Voltaren 1% Gel] 1 applic TOP BID 03/01/16 01/26/17 History Escitalopram [Lexapro] 20 mg PO DAILY 03/01/16 01/26/17 History Memantine [Namenda] 10 mg PO BID 03/01/16 01/26/17 History Mirtazapine [Remeron] 15 mg PO SUMOTUWETHFR 03/01/16 01/26/17 History Polyethylene Glycol Powder 17 gm PO BID 03/01/16 01/26/17 History [Miralax] Potassium Chloride Liquid 15 ml PO TID 03/01/16 01/26/17 History Acetaminophen Tab [Tylenol Tab] 1,000 mg PO Q6H PRN 04/22/16 01/26/17 History Gabapentin 300 mg PO BEDTIME 04/22/16 01/26/17 History Ondansetron Tab [Zofran Tab] 4 mg PO Q4H PRN 04/22/16 01/26/17 History Albuterol/Ipratropium Neb [Duoneb] 3 ml RESP TX RT Q6H PRN 10/28/16 01/26/17 History Gabapentin 200 mg PO DAILY 10/28/16 01/26/17 History Famotidine Tab [Pepcid Tab] 20 mg PO BID tablet 10/31/16 01/26/17 Rx HYDROcodone/ACETAMIN 7.5-325 1 tablet PO Q4H PRN #30 10/31/16 01/26/17 Rx [[place] 7.5-325] Lactulose Liquid [Chronulac] 20 gm PO Q4H PRN #0 10/31/16 01/26/17 Rx Ferrous Sulfate 220 mg PO BID 01/26/17 01/26/17 History Furosemide [Furosemide] 20 mg PO DAILY 01/26/17 01/26/17 History LORazepam TAB [Ativan Tab] 0.5 mg PO Q6H PRN 01/26/17 01/26/17 History Omeprazole [Prilosec] 20 mg PO DAILY 01/26/17 01/26/17 History Raloxifene [Evista] 60 mg PO DAILY 01/26/17 01/26/17 History Ropinirole HCl 2 mg PO TID 01/26/17 01/26/17 History Sodium Phosphate Enema [Fleet 133 ml RECTAL DAILY PRN 01/26/17 01/26/17 History Enema] guaiFENesin LIQUID [Robitussin] 10 ml PO Q4H 01/26/17 01/26/17 History Allergies Allergy/AdvReac Type Severity Reaction Status Date / Time No Known Allergies Allergy Verified 01/26/17 18:26 Medical,Surgical,& Family Hx - Medical History Cardio: History of: CHF, CAD, Hypertension Comment Only: Cardiovascular Problems (Cardiomegaly) Psychological: History of: Anxiety Disorders, Depression Neurology: History of: Dementia, Parkinson's Disease No history of: Seizures Genitourinary: History of: Bladder Problem (incont.), Recurring Urinary Tract Infections Gastrointestinal: History of: GERD, GI Problems (HIATAL HERNIA) Musculoskeletal: History of: Back/Neck Problems (BACK SURGERY), Musculoskeletal Problems (weakness) Hematology: History of: Anemia - Surgical History HEENT Surgeries: Surgical HX of: Eye Surgery (bilateral cataract excisions) Abdominal Surgeries: Surgical HX of: Cholecystectomy Reproductive Surgeries: Surgical HX of;: Hysterectomy Orthopedic Surgeries: Surgical HX of;: Total Knee Replacement (bilateral) - Family History Family History: Reports;: Family Heart Disease (mother) Denies;: Family Anesthesia Reaction, Family Cancer, Family Diabetes, Family Hypertension, Family Psychiatric Problems, Family Stroke - Social History Smoking Status: Never smoker Frequency of Alcohol Use: None Type of Drug Use: None ROS unobtainable: due to mental status Exam - Constitutional Vitals: Period Temp Pulse Resp BP Sys/Morgan Pulse Ox Last 24 Hr 97.0 F-97.0 F 80-82 22-23 68-72/39-42 89-95 General appearance: severe distress, cachectic - Head Head exam: Present: normal inspection - Respiratory Respiratory exam: Present: decreased breath sounds, other (crackles) - Cardiovascular Cardiovascular exam: Present: regular rate and rhythm - GI/Abdominal GI/Abdominal exam: Present: normal bowel sounds, other (peg tube in place) - Extremities Exam Extremities exam: Present: normal inspection - Neurological Exam Neurological exam: Present: other (minimally responsive) Results - Labs CBC & BMP: 01/26/17 18:33 01/26/17 18:33 Lab Results: I have reviewed the past 24 hour labs
[2017-01-26] MEDS ORDERED: SODIUM CHLORIDE 0.9% 1,000 ML IV SCH (22:55)
[2017-01-26] MEDS ORDERED: MORPHINE 2 MG/1 ML SYRINGE IV PRN (22:55)
[2017-01-26] MEDS ORDERED: ONDANSETRON 4 MG/2 ML VIAL IV PRN (22:55)
[2017-01-26] MEDS ORDERED: ALBUTEROL/IPRATROPIUM 3 ML NEB RESP TX STA (23:01)
[2017-01-27] MEDS ORDERED: VANCOMYCIN INJ 1,000 MG in SODIUM CHLORIDE 0.9% 250 ML IV ONE
[2017-01-27 00:13] LABS: Ammonia 20 UMOL/L (11-32)
[2017-01-27 00:22] LABS: Lactic Acid 9.6 MMOL/L (0.4-2.0)
[2017-01-27 00:27] LABS: Troponin I Only < 0.015 NG/ML (0.00-0.045)
[2017-01-27 00:33] LABS: Magnesium 2.4 MG/DL (1.8-2.4); Risk Ratio 1.78; Thyroid Stimulating Hormone 0.601 uIU/ml (0.358-3.74); VLDL CHOLESTEROL 7.6 MG/DL
[2017-01-27] MEDS ORDERED: CEFEPIME 500 MG in SODIUM CHLORIDE 0.9% 100 ML IV SCH (02:00)
[2017-01-27] MEDS ORDERED: methylPREDNISolone SOD SUC 125 MG/2 ML VIAL IV SCH (04:00)
--- NOTE | 2017-01-27 06:04 | EKG Report ---
Stationary ECG Study [facility] ER Test Date: 01/26/2017 7:01:36 PM Pat Name: IMANI HAM Department: Room: 520 Gender: F Attending Anesthesiologist: : [id number] Requested by: Dwayne Menendez Order Number: [id number] Philippe MD: JUDD HANNA Intervals [place] Rate: 80 P: 93 AK: 273 QRS: -39 QRSD: 93 T: 1 QT: 412 QTc: 448 Interpretive Statements SINUS RHYTHM WITH PROLONGED AK INTERVAL POSSIBLE ANTERIOR MYOCARDIAL INFARCTION, PREVIOUSLY CITED INFERIOR MYOCARDIAL INFARCTION, OF INDETERMINATE AGE LEFT AXIS DEVIATION Electronically Signed On 01-29-17 12:05:44 CDT by JUDD HANNA [email or web address]
--- NOTE | 2017-01-27 06:04 | EKG Report ---
Stationary ECG Study [facility] ER Test Date: 01/26/2017 7:01:03 PM Pat Name: IMANI HAM Department: Room: 520 Gender: F [employer]: : 1930 Requested by: Dwayne Menendez Order Number: [id number] Reading MD: JUDD HANNA Intervals [place] Rate: 87 P: 24 NE: 285 QRS: -39 QRSD: 88 T: 0 QT: 404 QTc: 448 Interpretive Statements SINUS RHYTHM WITH PROLONGED NE INTERVAL WITH OCCASIONAL VENTRICULAR PREMATURE COMPLEXES LEFT AXIS DEVIATION LOW QRS VOLTAGE IN PRECORDIAL LEADS POSSIBLE ANTERIOR MYOCARDIAL INFARCTION, PREVIOUSLY CITED Electronically Signed On 01-29-17 12:05:09 CDT by JUDD HANNA [email or web address]
--- NOTE | 2017-01-27 06:20 | CT Report ---
History: Altered mental status Date: 01/27/2017 Study: CT head without contrast Comparison exam: May 27, [address] sections were obtained through the head without IV contrast. The study was also reviewed by [facility]. This CT exam was performed using one or more the following dose reduction techniques: Automated exposure control, adjustment of the MA and/or KV according to patient size, or use of iterative reconstruction technique. There is moderate diffuse cerebral atrophy. The ventricles are midline in position without evidence of hydrocephalus. There is no mass or parenchymal hemorrhage. There is no gross CT evidence of acute cortical stroke. There is a small amount of ill-defined low density in the periventricular white matter without mass effect compatible with changes of small vessel disease. There is no extra-axial hematoma. There is no acute abnormality of the calvarium. There is some hyperostosis frontalis interna. Impression: No acute intracranial abnormality. 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 Rosalie Suazo
[2017-01-27 06:47] LABS: Basophils # 0.1 10*3/uL (0.0-0.2); Basophils % 0.4 % (0.0-0.8); Hematocrit 32.1 VOL% (35.7-47.0); Hemoglobin 10.4 GM/DL (12.0-16.0); Immature Granulocytes % 2.5 %; Immature Granulocytes Absolute 0.28 #; Lymphocytes # 0.5 10*3/uL (1.4-4.0); Lymphocytes % 4.1 % (21.3-54.2); Mean Corpuscular HGB Conc 32.4 GM/DL (32-36); Mean Corpuscular Hemoglobin 30 PG (27-34); Mean Platelet Volume 12.6 FL (9.6-12.0); Monocytes # 0.4 10*3/uL (0.11-0.8); Monocytes % 3.4 % (1.7-12.7); Neutrophils # 10.2 10*3/uL (1.4-7.4); Neutrophils % 89.6 % (38.7-73.9); Platelet Count 146 T/CUMM (130-400); Red Blood Count 3.45 MC/CUMM (3.8-5.5); Red Cell Distribution Width 15.2 % (9.3-17.3); White Blood Count 11.3 T/CUMM (4-12)
[2017-01-27 07:11] LABS: Band Neutrophils 9 % (0-10); Lymphocytes 3 % (20-55); Platelet Estimate Normal; Segmented Neutrophils 87 % (50-85); Total Cells Counted 100
[2017-01-27 07:12] LABS: Hypochromasia 1+; Ovalocytes Slight
[2017-01-27 07:14] LABS: Lactic Acid 2.6 MMOL/L (0.4-2.0)
[2017-01-27 07:29] LABS: Albumin 2.3 G/DL (3.4-5.0); Bilirubin,Total 0.5 MG/DL (0.2-1.0); Calcium 8.5 MG/DL (8.5-10.1); Osmolality,Calculated 303.4 MOS/KG (273-304); Potassium 3.7 MMOL/L (3.5-5.1); Total Protein 5.8 G/DL (6.4-8.3)
[2017-01-27 07:41] LABS: Troponin I Only 0.017 NG/ML (0.00-0.045)
[2017-01-27] MEDS ORDERED: LORazepam 2 MG/1 ML VIAL IV PRN (09:08)
[2017-01-27] MEDS: PANTOPRAZOLE 40 MG VIAL IV SCH (09:58)
[2017-01-27] MEDS: DESITIN 4OZ/NYSTATIN 15 GRAM MIXTURE PASTE TOP SCH ×2 (09:58→20:45)
--- NOTE | 2017-01-27 10:46 | Hospitalist Progress Note ---
Assessment and Plan (1) UTI (urinary tract infection) Status: Acute Assessment and plan: Comfort care measures only Discontinue IVs Ativan for anxiety Eat as she wants Current Visit: Yes (2) Septic shock Status: Acute Current Visit: Yes Hospitalist: Subjective Interval history: No acute events overnight. Long discussion with patient's family. They reiterate that they do not want any heroic life saving measures performed. They would like to solely focus on making patient comfortable. This includes no IV abx or needle sticks. Patient will be changed to comfort care measures only. Will allow patient to eat by mouth as she sees fit. Will consider transfer back to her [place] [facility] tomorrow. Exam - Constitutional Vitals: Period Temp Pulse Resp BP Sys/Morgan Pulse Ox Last 24 Hr 97.0 F-97.9 F 77-102 16-26 68-119/39-67 89-98 General appearance: normal weight - Head Head exam: Present: normocephalic, atraumatic - Eye Eye exam: Present: EOMI Pupils: Present: COSME - ENT ENT exam: Present: normal exam - Neck Neck exam: Present: normal inspection - Respiratory Respiratory exam: Present: other (coarse breath sounds). Absent: wheezes - Cardiovascular Cardiovascular exam: Present: regular rate and rhythm - GI/Abdominal GI/Abdominal exam: Present: normal bowel sounds, soft. Absent: tenderness, rebound - Extremities Exam Extremities exam: Present: normal inspection - Back Exam Back exam: Present: normal inspection - Neurological Exam Neurological exam: Present: alert - Skin Skin exam: Present: warm, intact Results - Labs CBC & BMP: 01/27/17 06:39 01/27/17 06:38 Quality Measures - VTE Contraindication to Pharmacological VTE Prophylaxis: High Risk of Bleeding
[2017-01-27] MEDS ORDERED: TEMAZEPAM 15 MG CAPSULE PO PRN (20:33)
[2017-01-28 07:51] VITALS: BP 158/76
[2017-01-28] MEDS: PANTOPRAZOLE 40 MG VIAL IV SCH (08:42)
[2017-01-28] MEDS: DESITIN 4OZ/NYSTATIN 15 GRAM MIXTURE PASTE TOP SCH (08:42)
[2017-01-28] MEDS ORDERED: ACETAMINOPHEN 325 MG TABLET PO PRN (09:08)
[2017-01-28] MEDS ORDERED: oxyCODONE/ACETAMINOPHEN 5-325 MG TABLET PO ONE (10:03)
--- NOTE | 2017-01-28 10:33 | Discharge Summary ---
Hospital Course - Hospital Course Hospital Course: Patient admitted with septic shock secondary to urinary tract infection. On presentation she was started on vancomycin and cefepime. She was hypotensive, which responded to IV fluids. The patient was Do Not Resuscitate. On further conversations with the family she was made Comfort Care Measures Only. She was allowed to eat as she wanted by mouth. Her peg was not used. She will now be discharged back to her long term for hospice care. - Time spent with patient Time with patient DS: Less than 30 minutes (25) Diagnosis - Discharge Diagnosis (1) UTI (urinary tract infection) Status: Acute (2) Septic shock Status: Acute Specialty Discharge - Follow Up or Referrals Discharge Plan - Discharge Data Disposition: Hospice - Medical Facility Condition at Discharge: Critical Discharge Diet: regular diet - Discharge Medications New LORazepam INJ [Ativan Inj] 1 mg IV Q2H PRN vial PRN Reason: Anxiety Continue Acetaminophen Tab [Tylenol Tab] 1,000 mg PO Q6H PRN PRN Reason: Pain Albuterol/Ipratropium Neb [Duoneb] 3 ml RESP TX RT Q6H PRN PRN Reason: Pain HYDROcodone/ACETAMIN 7.5-325 [[place] 7.5-325] 1 tablet PO Q4H PRN #30 PRN Reason: Pain Discontinued Diclofenac 1% Gel [Voltaren 1% Gel] 1 applic TOP BID Mirtazapine [Remeron] 15 mg PO SUMOTUWETHFR Memantine [Namenda] 10 mg PO BID Polyethylene Glycol Powder [Miralax] 17 gm PO BID Calcium (Carb)/Vit D 600-400 [Caltrate 600 + D] 1 tablet PO TID Potassium Chloride Liquid 15 ml PO TID Escitalopram [Lexapro] 20 mg PO DAILY Carbidopa/Levodopa 25-100 [Sinemet 25-100] 1 tablet PO TID Gabapentin 300 mg PO BEDTIME Ondansetron Tab [Zofran Tab] 4 mg PO Q4H PRN PRN Reason: Nausea Lactulose Liquid [Chronulac] 20 gm PO Q4H PRN #0 PRN Reason: Constipation Ferrous Sulfate 220 mg PO BID Furosemide [Furosemide] 20 mg PO DAILY guaiFENesin LIQUID [Robitussin] 10 ml PO Q4H PRN PRN Reason: cough LORazepam TAB [Ativan Tab] 0.5 mg PO Q6H PRN PRN Reason: Anxiety Omeprazole [Prilosec] 20 mg PO DAILY Ropinirole HCl 2 mg PO TID Sodium Phosphate Enema [Fleet Enema] 133 ml RECTAL DAILY PRN PRN Reason: BOWEL ENHANCEMENT Loperamide Cap [Imodium Cap] 2 mg PO Q4HR PRN PRN Reason: Diarrhea Gabapentin 200 mg PO DAILY Famotidine Tab [Pepcid Tab] 20 mg PO BID tablet Raloxifene [Evista] 60 mg PO DAILY - Follow Up or Referral - Forms/Instructions Instructions: Heart Failure (DC), Dementia (GEN), Community-acquired Pneumonia (DC) Exam - Constitutional Vitals: Period Temp Pulse Resp BP Sys/Morgan Pulse Ox Last 24 Hr 96.8 F-98.7 F 66-88 16-20 99-158/48-76 95-98 General appearance: normal weight - Head Head exam: Present: normocephalic, atraumatic - Eye Eye exam: Present: EOMI Pupils: Present: COSME - ENT ENT exam: Present: normal exam - Neck Neck exam: Present: normal inspection - Respiratory Respiratory exam: Present: clear to auscultation bilaterally - Cardiovascular Cardiovascular exam: Present: regular rate and rhythm - GI/Abdominal GI/Abdominal exam: Present: normal bowel sounds, soft - Extremities Exam Extremities exam: Present: normal inspection - Back Exam Back exam: Present: normal inspection - Neurological Exam Neurological exam: Present: alert - Psychiatric Psychiatric exam: Present: normal affect, normal mood - Skin Skin exam: Present: warm, intact Discharge Results Procedures and tests throughout hospitalization: Pending Orders 01/26/17 Urine Culture Routine 01/26/17 19:12 Blood Culture Stat Labs on day of discharge: Preliminary micro results at discharge 01/26/17 19:12 Blood Culture - Preliminary Blood No growth at 1 day 01/26/17 19:00 Blood Culture - Preliminary Blood No growth at 1 day 01/26/17 Unknown Urine Culture - Preliminary Urine,Catheterized Gram Negative Rods DS: Provider Date of admission: 01/26/17 21:34 Primary care physician: . No PCP Attending physician on admission: Viviana Dunham MD Discharging clinician: Boo Edmondson MD
== END 2017-01-28 11:14 | DRG 871 ==
LOC: EDUNIT# → EDBD → N.ED 18:17 → N.EDINP 21:34 → SUATTDRO 21:34 → N.5E 22:34
PROVIDERS: ADMIT Internal Medicine; ATTEND Internal Medicine